=== PATIENT | female | born 1950 | race Caucasian/White ===

== ENCOUNTER 2017-05-13 14:16 | Outpatient (CLI) | payer MEDICARE ==
--- NOTE | 2017-05-13 17:45 | MMO ---
BILATERAL DIGITAL SCREENING MAMMOGRAMS: Date: 05/13/17 This patient's mammogram was interpreted with the assistance of computer-aided detection. Baseline exam. FINDINGS: There are a few scattered fibroglandular densities. No suspicious masses or calcifications are seen. IMPRESSION: BIRADS 1: Negative Return to annual mammographic screening. POS: [facility]
== END 2017-05-13 14:17 | disposition home or self-care (01) ==
LOC: MAMMO 14:16
PROVIDERS: ATTEND Obstetrics & Gynecology
DX: Z12.31 Encounter for screening mammogram for malignant neoplasm of breast (principal)
CPT/HCPCS: 77067; G0202

== ENCOUNTER 2018-03-14 16:29 | Outpatient (CLI) | payer MEDICARE ==
--- NOTE | 2018-03-14 15:48 | RAD ---
PA AND LATERAL VIEWS OF THE CHEST: 03/14/18 HISTORY: Preoperative evaluation. FINDINGS: The heart size is normal. The aorta is tortuous. The lungs are well expanded without lobar consolidat ion, pneumothoraces, or pleural effusions. There are mild degenerative changes in the spine. IMPRESSION: No radiographic evidence of acute cardiopulmonary process. POS: [facility]
[2018-03-14 15:57] LABS: Hemoglobin 13.2 g/dL (12.0-16.0); Mean Corpuscular HGB CONC 34.6 g/dL (32.0-36.0); Mean Corpuscular Hemoglobin 32.3 pg (27.0-31.0); Mean Corpuscular Volume 93.6 fL (78.0-98.0); Mean Platelet Volume 6.5 fL (7.4-10.4); Platelet Count 184 thou/uL (130-400); Red Blood Cell (RBC) Count 4.08 mill/uL (4.20-5.40); White Blood Cell (WBC) Count 7.2 thou/uL (4.8-10.8)
[2018-03-14 16:13] LABS: ALT (SGPT) Less than 7 U/L (8-55); AST (SGOT) 11 U/L (5-34); Albumin 4.1 g/dL (3.4-4.8); Alkaline Phosphatase 60 U/L (40-150); Bilirubin, Direct 0.2 mg/dL (0.1-0.3); Bilirubin, Total 0.5 mg/dL (0.2-1.2); Protein, Total 6.4 g/dL (6.0-8.3)
[2018-03-14 16:14] LABS: ALT (SGPT) Less than 7 U/L (8-55); AST (SGOT) 12 U/L (5-34); Albumin 4.2 g/dL (3.4-4.8); Alkaline Phosphatase 63 U/L (40-150); Anion Gap 9 mmol/L (10-20); BUN (Urea Nitrogen) 8 mg/dL (9.8-20.1); Bilirubin, Total 0.6 mg/dL (0.2-1.2); Calc. Creatinine Clearance 0 mL/min (70-130); Calcium 9.2 mg/dL (7.8-10.44); Carbon Dioxide 32 mmol/L (23-31); Chloride 104 mmol/L (98-107); Estimated GFR-MDRD Greater than 90; Globulin 2.2 g/dL (2.4-3.5); Glucose 94 mg/dL (80-115); Potassium 3.7 mmol/L (3.5-5.1); Protein, Total 6.4 g/dL (6.0-8.3); Sodium 141 mmol/L (136-145)
== END 2018-03-14 16:30 | disposition home or self-care (01) ==
LOC: LABBT 16:29
PROVIDERS: ATTEND Student in an Organized Health Care Education/Training Program
DX: Z01.818 Encounter for other preprocedural examination (principal); N81.10 Cystocele, unspecified; N81.6 Rectocele
CPT/HCPCS: 71046; 80076; 85027; 86850; 86870; 86900; 86901; 86905; 86922; 93005; 93010

== ENCOUNTER 2018-03-17 05:43 | Day surgery (SDC) | payer MEDICARE ==
[2018-03-14 14:47] VITALS: BMI 17.9
[2018-03-17] MEDS ORDERED: Gabapentin 300 MG CAP ONE (06:06)
[2018-03-17] MEDS ORDERED: CeleCOXIB 100 MG CAP ONE (06:07)
[2018-03-17] MEDS ORDERED: Famotidine/PF 20 mg/2ml Vial ONE (06:07)
[2018-03-17] MEDS ORDERED: CEFAZOLIN/Water 2 GM/20 ML SYRINGE ONE (06:07)
[2018-03-17] MEDS ORDERED: Lidocaine 0.5%/Epinephrine 1:200,000 50 ml Vial ONE (06:28)
[2018-03-17] MEDS ORDERED: Bupivacaine HCl 0.5%/Epinephrine 1:200,000/PF 30 ml Vial ONE ×2 (06:28→06:39)
[2018-03-17] MEDS ORDERED: Fentanyl 100 MCG/2 ML VIAL ONE ×2 (06:50→07:31)
[2018-03-17] MEDS ORDERED: Midazolam HCl 2 mg/2 ml Vial ONE (06:50)
[2018-03-17] MEDS ORDERED: HYDROmorphone 2 MG/ML VIAL ONE (07:32)
[2018-03-17] MEDS ORDERED: Lidocaine 1% w/Epinephrine 1:100K 30 ML VIAL ONE (09:26)
[2018-03-17] MEDS ORDERED: Furosemide 20 MG/2 ML VIAL ONE (09:38)
[2018-03-17] MEDS ORDERED: Ondansetron HCl/PF 4 MG/2 ML Vial IVP PRN ×2 (10:43→10:51)
[2018-03-17] MEDS ORDERED: Promethazine HCl 25 MG/ML VIAL IM PRN ×2 (10:43→10:51)
[2018-03-17] MEDS ORDERED: Promethazine HCl 25 MG/ML VIAL SLOW IVP PRN (10:43)
[2018-03-17] MEDS ORDERED: diphenhydrAMINE 25 MG CAP PO PRN (10:51)
[2018-03-17] MEDS ORDERED: traMADol HCl 50 MG TAB PO PRN ×2 (10:51)
[2018-03-17] MEDS ORDERED: Zolpidem Tartrate 5 MG TAB PO PRN (10:51)
[2018-03-17] MEDS ORDERED: Simethicone Chewable 80 MG TAB PO PRN (10:51)
[2018-03-17] MEDS ORDERED: Bisacodyl 10 MG SUPP PR PRN (10:51)
[2018-03-17] MEDS ORDERED: Morphine 4 MG/ML Carpuject SLOW IVP PRN (10:51)
[2018-03-17] MEDS ORDERED: Ketorolac Tromethamine 30 MG/ML VIAL IVP SCH (12:00)
[2018-03-17] MEDS: Acetaminophen 500 MG TAB PO SCH ×2 (12:00→18:24)
--- NOTE | 2018-03-17 12:13 | OP ---
DATE OF OPERATION: 03/17/2018 PREOPERATIVE DIAGNOSES: 1. Incomplete uterovaginal prolapse. 2. Cystocele. 3. Rectocele. 4. Stress urinary incontinence. POSTOPERATIVE DIAGNOSES: 1. Incomplete uterovaginal prolapse. 2. Cystocele. 3. Rectocele. 4. Stress urinary incontinence. PROCEDURE: Robotic assisted total laparoscopic hysterectomy, bilateral salpingo-oophorectomy, vagina l vault suspension, midurethral sling, posterior colporrhaphy, and cystoscopy. ATTENDING SURGEON: Noreen Valadez M.D. DATA SOFTWARE ENGINEER SURGEON: Funmi Bhatt M.D. ESTIMATED BLOOD LOSS: 100 mL. INTRAVENOUS FLUIDS: 1800 mL crystalloid. URINE OUTPUT: 530 mL of clear urine. COMPLICATIONS: None. DRAINS: Lee catheter. PATHOLOGY: Uterus, cervix, bilateral fallopian tubes, and ovaries. FINDINGS: On exam under anesthesia, a mobile small postmenopausal uterus, normal contours sounded to 6 cm, normal appearing cervix and vaginal mucosa. Ovaries were atrophic and normal appearing fallop naa tubes bilaterally were normal appearing. Upper abdominal survey was normal. There was a small b lack to blue appearing endometriotic implant over the right round ligament that was cauterized. The cervix and cystocele were a grade III prolapse and the vault suspension suspended this excellently fo llowing the procedure. On cystoscopic exam, the bladder mucosa was within normal limits. There were no lesions or masses. There was no perforation suture or mesh material within the bladder. The ure ters efflux bilaterally vigorously. There was some oozing out of the mid urethral sling incision vag inally from the retropubic space and pressure was held as well as increasing the Lee catheter ballo on to 20 mL to hold pressure and this was hemostatic. Vaginal packing was placed at the conclusion o f the case, the counts were incorrect off by one needle that was a Monocryl to close the abdomen inci sions. This was unable to be located. Therefore, the abdominal x-ray was performed and there was no needle within the abdominal or vaginal cavity on the imaging. OPERATIVE TECHNIQUE: The patient was taken to the operating room where general anesthesia was obtain ed without difficulty. The patient was prepped and draped in sterile fashion in the dorsal lithotomy position. Lee catheter was placed in the bladder. Speculum was placed in the vagina. The anteri or lip of the cervix was grasped with single tooth tenaculum. The cervix was dilated with Jace dilat ors and sounded to 6 cm. The uterus fundus was perforated during the sounding process. The MED man ipulator was assembled with a 3.5 cm ring and a 6 cm tip. The tip was inserted to the uterine fundus and the ring was advanced to fit snugly around the cervix. Instruments were removed out of the vagi na and attention was turned to the abdomen. Legs were placed in low lithotomy and 0.25% Marcaine wit h epinephrine was infiltrated into the umbilicus and a 12 mm skin incision was made in the umbilicus. The Veress needle was passed into the abdomen noting an opening pressure of 0 mmHg. Pneumoperitone um was obtained without difficulty. A 12 mm trocar and sleeve were kept passed into the abdomen and confirmed placement with robotic camera. Steep Trendelenburg was obtained. Right and left lower sera otic 8 mm ports were placed under direct visualization after infiltrating with 0.25% Marcaine with ep inephrine. A right upper quadrant 11 mm accounts receivable assistant port was also placed under direct visualization af ter infiltrating with anesthetic. The robot was then docked from the right robotic arm contained a m onopolar scissors, left robotic arm contained a fenestrated bipolar. The surgeon console then took c ontrol. The ureters were noted coursing in the pelvis from the brim down to the level of the uterosa cral bilaterally. The uterosacrals were then highlighted sharply anteverted and the uterus and a rel easing incision was made just lateral to the middle two-thirds to distal two-thirds of the uterosacra l ligaments with the scissors to prevent ureteral kinking and to beatriz the location of the vault suspe nsion following hysterectomy. Attention was then turned to the left fallopian tube that was grasped and elevated. The IP ligament was clamped and cauterized hugging the ovary and this was then transec aman with the scissors. The mesovarium was cauterized and sequentially transected with the fenestrate d followed by the scissors until the round ligament was met where the mid portion was clamped, cauter ized with the fenestrated and transected with scissors. The posterior leaf of the broad ligament was dropped down to the level of the internal cervical os and the anterior leaf of the broad ligament wa s incised down to the level of the bladder flap and the vessels were skeletonized on the left side an d then cauterized and clamped and cauterized several times with the fenestrated and the vesicouterine peritoneum was incised over the level of the colpotomizer ring and the bladder was dissected down we ll below the level of the colpotomy the ring in order to perform the vault suspension with the scisso rs and bluntly dissecting with the back end of the scissors as well. Attention was then turned to th e right side where the fallopian tube was grasped and elevated. The IP ligament was clamped, cauteri zed, just underneath the ovary. The ureter was well away and this was transected with the scissors. The mesovarium was sequentially clamped, cauterized, and transected down to the level of the round l igament that was cauterized in the midportion and transected with scissors. The posterior lip of the broad ligament was dropped down to the level of the internal cervical os. The anterior lip of the b road ligament was incised down to the contralateral incision and the bladder flap was fully developed using a scoring technique on the pubocervical fascia and blunt dissection down distally well below t he level of the colpotomizer ring. The vessels were skeletonized on the right side and then clamped, cauterized at the level of the internal cervical os. They were then incised and the pedicle was inc ised medially to allow it to drop away from the vaginal cuff apex. The left-sided vessels were also cauterized, once again and then incised and the pedicle was dissected down laterally from the vaginal cuff again closed, thick and closed with again. Anterior colpotomy was performed, carried laterally and then posterior colpotomy completely transected the uterus. Uterus placed into the vagina and th e scissors were traded out for the needle telephone directory distributor driver. The vaginal cuff was hemostatic with the use of fe nestrated, 2-0 barbed Stratafix suture was then used to close the vaginal cuff in a running fashion a nd ran back for a second layer with incorporation of vaginal mucosa and posterior peritoneum in each bite and excellent reapproximation. The needle was then removed out of the abdomen, 0 Ethibond was t hen passed into the abdomen and used to perform the vault suspension going through the distal third f ollowed by the middle two-thirds of the uterosacral ligament and then running the suture through the posterior cuff and then anteriorly through the pubocervical fascia and this was then tied down tight and this was performed bilaterally. The ureters were noted during this process. The needle was rob debbi out of the abdomen. Irrigation was performed of the pelvis and low pressure check was performed. Hemostasis was noted to be excellent. All instruments were removed from the abdomen. The robot wa s undocked and the fascia of the camera port was closed with 0 Vicryl in [id number] fashion. Sk in was closed with 4-0 Monocryl in subcuticular fashion. Dermabond was applied. Attention was then turned to the vagina where a weighted speculum was placed in the vagina and the mid urethra was grasp ed with two Allis clamps was infiltrated with 1% lidocaine with epinephrine and incision with a blade over the mid urethra was performed. The Metzenbaums were used to dissect out the subpubic space zach aterally. Hydrodissection was then performed of the access site on the suprapubic space with 30 mL a nd saline bilaterally. The Lee balloon was deflated. A catheter guidewire was inserted into the F oley. The bladder was deviated and the [employer] Advantage Fit sling was placed in the retro pubic space bilaterally and the mesh. The blue mesh plastic was secured at the pubic bone bilaterall y, each time the sling was placed. The needle was inserted to hug the pubic bone during the entire p rocedure. There was some oozing from the retropubic space after placement of the sling. The Lee c atheter was then removed and a 70-degree cystoscope was placed into the bladder and bladder was allow ed to fill. There were no masses or lesions. There were no lacerations or foreign material within t he bladder where after a thorough inspection of the entire bladder, the ureters were observed and not ed to be effluxing bilaterally. The cystoscope was removed. A Lee catheter was replaced and then tightening of the sling was performed. The scissors were placed in between the urethra and the mesh and the mesh plastic at the pubic bone was pulled to tighten the sling. The tab on the middle of the sling was then cut and the mesh was appropriately tightened. The vaginal and anterior vaginal incis ion was then closed with a 2-0 Vicryl in a running fashion. Pressure was held in the retropubic spac e, the Lee catheter was also inflated with an additional 10 mL of saline and this was held tightly against the urethra and therefore, the retropubic space as well. There was no active bleeding out of the incision after approximately 5 minutes of pressure held. The posterior vaginal mucosa was then grasped with Allis clamps and infiltrated with 1% lidocaine with epinephrine. The Metzenbaums were u sed to incise the posterior fourchette and the vaginal mucosa was dissected off the rectovaginal fasc ia with the Metzenbaums as well as with a fluffed out Ray-Birdie. Hemostasis was achieved with the Bovi e. Rectal exam was performed to note where the fascia remained as the patient had very little fascia posteriorly. This was identified and grasped with Allis clamps and a 2-0 Vicryl was used to approxi mate these fascial pieces to allow for an excellent posterior plication. Irrigation was performed of this area and hemostasis was noted. The posterior vaginal mucosal incision was closed with 2-0 Vicr yl in a running fashion. At this point, a vaginal packing was placed with the moistened Kerlix. At this point the count was noted to be incorrect. The nurse had noted that she had removed the needle off of the Ibarra after complete closure of the skin on the abdomen as the Monocryl suture was the one missing, she had been subsequently moved to OR table onto her needle had; however, the needle was not present and the hole where the needle was at was also observed. The entire back table was thoroughl y inspected repeatedly. The floor was also thoroughly inspected and magnetized broom was used to fin d it looked for the needle; however, we were unable to locate it. The patient was thoroughly inspect ed on the skin and the crevices between the arms of the arms were tucked and the needle was still barbara ble to be located. Therefore, the x-ray was called for and this was negative for any needle as we we re reassured that this was somewhere in the room, but there was no chance of the needle being present inside the patient. The patient tolerated the procedure well. Sponge and needle counts were incorr ect as the previously noted. The patient was taken to recovery room in stable condition. Patient re ceived Ancef 2 grams prior to the procedure.
--- NOTE | 2018-03-17 12:22 | RAD ---
ABDOMEN 1 VIEW: Date: 03/17/18 HISTORY: OR needle. COMPARISON: None. FINDINGS: There is subcutaneous emphysema along the left and right abdomen. No radiopaque curvilinear foreign o bject to suggest a needle is appreciated. IMPRESSION: No evidence for radiopaque curvilinear needle. POS: [facility]
[2018-03-17] MEDS: Lactated Ringer's 1,000 ML IV SCH ×2 (13:10→18:24)
[2018-03-17] MEDS: Ketorolac Tromethamine 30 MG/ML VIAL IVP SCH (16:23)
[2018-03-17] MEDS: Gabapentin 300 MG CAP PO SCH (23:08)
[2018-03-18] MEDS: Ketorolac Tromethamine 30 MG/ML VIAL IVP SCH ×2 (01:45→05:14)
[2018-03-18] MEDS: Acetaminophen 500 MG TAB PO SCH ×3 (01:46→11:46)
[2018-03-18] MEDS: Lactated Ringer's 1,000 ML IV SCH (02:23)
[2018-03-18] MEDS ORDERED: Sodium Chloride 0.9% 10 ML ONE (06:13)
[2018-03-18 06:19] LABS: Hemoglobin 9.9 g/dL (12.0-16.0); Mean Corpuscular HGB CONC 34.1 g/dL (32.0-36.0); Mean Corpuscular Volume 94.1 fL (78.0-98.0); Mean Platelet Volume 6.7 fL (7.4-10.4); Platelet Count 147 thou/uL (130-400); RBC Distribution Width 11.9 % (11.5-14.5); Red Blood Cell (RBC) Count 3.09 mill/uL (4.20-5.40)
[2018-03-18] MEDS ORDERED: CeleCOXIB 100 MG CAP PO PRN (08:00)
--- NOTE | 2018-03-18 08:26 | PRG ---
DATE OF SERVICE: 03/18/2018 TIME OF VISIT: 07:50. SUBJECTIVE: Overnight, patient is without complaints. Her pain is well controlled on IV Toradol, p. o. Tylenol and gabapentin. She has tolerated crackers and liquids, has no nausea. No difficulty helder athing or chest pain. No dizziness and the patient has yet to void; however, has ambulated around e room. OBJECTIVE: VITAL SIGNS: Blood pressure 95/55, temperature 98.0, pulse 61, respirations 16, O2 sat is 97% on [place] m air. GENERAL: No acute distress. CARDIAC: Regular rate and rhythm. LUNGS: Clear to auscultation bilaterally. ABDOMEN: Soft, appropriately tender to palpation, nondistended. Incisions are clean, dry, and intac t, some bruising around the incisions and around the pubic bone, minimal. EXTREMITIES: No edema, cyanosis or clubbing. Sequential compression devices are in place. LABORATORY DATA: Hemoglobin is 9.9, hematocrit 29.0, platelets are 147. ASSESSMENT AND PLAN: A 67-year-old status post robotic-assisted total laparoscopic hysterectomy, zach ateral salpingo-oophorectomy, vaginal vault suspension, posterior colporrhaphy, midurethral sling and cystoscopy. Vital signs are within normal limits. The patient is afebrile. She has appropriate dr op in hemoglobin post-surgery resulting in mild anemia. This is due to surgical blood loss. She has no symptoms of anemia or ongoing bleeding. We will treat this with multivitamin upon discharge. Pa in is well controlled. She will be transitioned to p.o. Celebrex and p.o. Tylenol as well as p.r.n. tramadol and this will be her discharge medications. She will be advanced to a regular diet this mor caren as tolerated. She is currently undergoing voiding trial and the Lee catheter is out. She vivek l have a postvoid residual performed to see if adequate emptying is occurring, status post prolapse r epair and sling. She will be continued on home prednisone on discharge. Currently, she is undergoin g a stress dose course of steroids x24 hours. The patient has been advised on discharge in terms of restrictions of no heavy lifting greater than 20 pounds and nothing in the vagina. She is advised on expectations regarding postoperative care and given warnings of when to come to the ER or call the o ffice including fever, severe pain, heavy vaginal bleeding, persistent nausea, vomiting or inability to void and she understands this. Final pathology is pending and discharge is pending a postvoid res idual and tolerating her breakfast this morning.
[2018-03-18] MEDS: Gabapentin 300 MG CAP PO SCH (09:18)
[2018-03-18 16:55] VITALS: BP 95/51; TEMP 98.2
== END 2018-03-18 17:02 | disposition home or self-care (01) ==
LOC: SDC 05:43 → EDSTATUS 12:00 → 3SE 12:28 → SDC 03-18 17:02
PROVIDERS: ATTEND Student in an Organized Health Care Education/Training Program
PROC: 0UT94ZZ Resection of Uterus, Percutaneous Endoscopic Approach (ICD-10-PCS; principal; 2018-03-17)
PROC: 0UT24ZZ Resection of Bilateral Ovaries, Percutaneous Endoscopic Approach (ICD-10-PCS; 2018-03-17)
PROC: 0UT74ZZ Resection of Bilateral Fallopian Tubes, Percutaneous Endoscopic Approach (ICD-10-PCS; 2018-03-17)
PROC: 0TSC0ZZ Reposition Bladder Neck, Open Approach (ICD-10-PCS; 2018-03-17)
PROC: 0USG4ZZ Reposition Vagina, Percutaneous Endoscopic Approach (ICD-10-PCS; 2018-03-17)
PROC: 0JQC0ZZ Repair Pelvic Region Subcutaneous Tissue and Fascia, Open Approach (ICD-10-PCS; 2018-03-17)
DX: N81.2 Incomplete uterovaginal prolapse (principal); N81.6 Rectocele; N39.3 Stress incontinence (female) (male); N72 Inflammatory disease of cervix uteri; N83.8 Other noninflammatory disorders of ovary, fallopian tube and broad ligament; M19.90 Unspecified osteoarthritis, unspecified site; M79.7 Fibromyalgia; F17.210 Nicotine dependence, cigarettes, uncomplicated; Z79.52 Long term (current) use of systemic steroids; Z88.8 Allergy status to other drugs, medicaments and biological substances
CPT/HCPCS: 57250; 57288; 57425; 58571; 74018; 85027; 88305; C1781; 36415; A4216; J0670; J1170; J1885; J1940; J2001; J2250; J2920; J3010; Q9968; S0028

== ENCOUNTER 2019-01-16 12:56 | Outpatient (CLI) | payer MEDICARE ==
--- NOTE | 2019-01-13 10:26 | RAD ---
EXAM: Chest 2 views: HISTORY: Unintentional weight loss. Tobacco abuse COMPARISON: 03/14/2018 FINDINGS: There is a normal-sized cardiomediastinal silhouette. There is no evidence of consolidation, mass, or pleural effusion. The bones are unremarkable. IMPRESSION: No evidence of acute cardiopulmonary disease
[~2019-01-16 12:56] MED LIST: Iopamidol 370 76% 100 ML VIAL ONE
[2019-01-16 13:15] LABS: Estimated GFR-MDRD - POC Greater than 90
--- NOTE | 2019-01-16 13:37 | CT ---
CT Abdomen Pelvis W Con History: Weight loss. Tobacco use. Comparison: None. Findings: Focal area of bronchiectasis likely scar within the anterior segment left lower lobe. No pe ricardial effusion. The aortoiliac contour is nonaneurysmal. Severe diverticular disease sigmoid colon without active cur rent inflammation. Large peripherally calcified cysts within the medial margin of the spleen measures 1.6 cm, benign fin ding. Celiac trunk and superior mesenteric arteries are patent. Liver and gallbladder are normal as well as the pancreas and adrenal glands. No hydronephrosis. No abnormal renal enhancing mass. Moderat e facet arthropathy lower lumbar spine. Small simple cyst hepatic segment 6. Impression: 1. No acute inflammatory process in the abdomen or pelvis. 2. No findings to explain patient's weight loss. 3. Likely a focal area of scarring and bronchiectasis anterior segment left lower lobe although not w ell-defined on prior chest radiograph 2018. Follow-up CT of the chest in 6 months is recommended.
== END 2019-01-16 12:57 | disposition home or self-care (01) ==
LOC: BICCT 12:56
PROVIDERS: ATTEND Internal Medicine Gastroenterology
DX: R63.4 Abnormal weight loss (principal); Z71.6 Tobacco abuse counseling
CPT/HCPCS: 71046; 74177; 82565; Q9967